=== PATIENT | female | born 2000 | race Two or more races ===

== ENCOUNTER 2022-10-22 23:16 | Emergency (ER) | payer OTHER ==
[~2022-10-22] VITALS: Ht 157.5 cm; Wt 97.8 kg
[2022-10-23 01:08] LABS: Basophils # (auto) 0.1 10 ^3/uL (0-0.2); Basophils % (auto) 1.4 % (0.0-2.0); Eosinophils # (auto) 0.2 10 ^3/uL (0-0.8); Eosinophils % (auto) 1.6 % (0.0-7.0); Hematocrit 44.3 % (36.0-46.0); Hemoglobin 14.7 g/dL (12.2-16.2); Lymphocytes # (auto) 1.6 10 ^3/uL (0.4-5.4); Mean Corpuscular Hemoglobin 30.2 pg (28.0-32.0); Mean Corpuscular Hgb Conc. 33.2 g/dL (32.0-36.0); Mean Corpuscular Volume 90.8 fL (80.0-100.0); Monocytes # (auto) 0.7 10 ^3/uL (0-1.3); Monocytes % (auto) 6.1 % (0.0-12.0); Neutrophils # (auto) 8.2 10 ^3/uL (1.6-8.6); Neutrophils % (auto) 75.9 % (37.0-80.0); Red Blood Cells 4.88 10^6/uL (4.0-5.20); Red Cell Distribution Width 12.9 % (11.8-14.3); White Blood Cell 10.8 10^3/uL (4.4-10.8)
[2022-10-23 01:21] LABS: Albumin 3.5 g/dL (3.4-5.0); Calcium 9.3 mg/dL (8.5-10.1); Potassium 3.6 mmol/L (3.5-5.1)
[2022-10-23 01:24] LABS: Bilirubin, Total 0.8 mg/dL (0.2-1.0); Total Protein 7.4 g/dL (6.4-8.2)
[2022-10-23] MEDS ORDERED: ONDA-144 PO (05:14)
[2022-10-23] MEDS ORDERED: CIPR-173 PO (05:14)
[2022-10-23] MEDS ORDERED: PERCOT PO (05:14)
[2022-10-23 05:18] VITALS: BP 96/65
== END 2022-10-23 05:19 | disposition home or self-care (01) ==
LOC: ER 23:16
DX: K80.20 Calculus of gallbladder without cholecystitis without obstruction (principal)
CPT/HCPCS: 36415; 71045; 74176; 80053; 83690; 85025

== ENCOUNTER → 2023-04-22 | Outpatient (CLI) | payer OTHER ==
[~2023-04-22] MED LIST: CIPR-173 PO; ONDA-144 PO; PERCOT PO
[2023-04-22 11:51] LABS: Beta HCG, Quantitative < 1 mlU/mL (1-3); Follicle Stimulating Hormone 10.28 IU/L (SEE BELOW)
== END | disposition home or self-care (01) ==
LOC: LAB 10:37
PROVIDERS: ATTEND Obstetrics & Gynecology
DX: R10.2 Pelvic and perineal pain (principal); N91.2 Amenorrhea, unspecified
CPT/HCPCS: 36415; 82670; 83001; 83002; 84403; 84443; 84702

== ENCOUNTER 2023-05-05 20:56 | Emergency (ER) | payer OTHER ==
[~2023-05-05] VITALS: Ht 154.9 cm; Wt 59.8 kg
[2023-05-05 22:26] LABS: Urine Bacteria MOD /hpf (None Seen); Urine Blood Negative /uL (Negative); Urine Mucus FEW (None Seen); Urine WBC 9 /hpf (0 - 5)
[2023-05-05 22:31] LABS: Basophils # (auto) 0 10 ^3/uL (0-0.2); Basophils % (auto) 0.7 % (0.0-2.0); Eosinophils # (auto) 0.1 10 ^3/uL (0-0.8); Eosinophils % (auto) 1.9 % (0.0-7.0); Hematocrit 39.6 % (36.0-46.0); Hemoglobin 13.7 g/dL (12.2-16.2); Lymphocytes # (auto) 2.5 10 ^3/uL (0.4-5.4); Lymphocytes % (auto) 36.9 % (10.0-50.0); Mean Corpuscular Hgb Conc. 34.7 g/dL (32.0-36.0); Mean Corpuscular Volume 89.5 fL (80.0-100.0); Monocytes # (auto) 0.4 10 ^3/uL (0-1.3); Monocytes % (auto) 6.1 % (0.0-12.0); Neutrophils # (auto) 3.7 10 ^3/uL (1.6-8.6); Neutrophils % (auto) 54.4 % (37.0-80.0); Nucleated Red Blood Cells % 0.2 %; Red Blood Cells 4.42 10^6/uL (4.0-5.20); Red Cell Distribution Width 12.6 % (11.8-14.3); White Blood Cell 6.9 10^3/uL (4.4-10.8)
[2023-05-05 22:42] LABS: Albumin 3.6 g/dL (3.4-5.0); Calcium 8.5 mg/dL (8.5-10.1)
[2023-05-05 22:44] LABS: BUN/Creatinine Ratio 24.1 (10.0-20.0)
[2023-05-05 22:47] LABS: Bilirubin, Total 0.5 mg/dL (0.2-1.0); Total Protein 7.6 g/dL (6.4-8.2)
[2023-05-06] MEDS ORDERED: HYDROmorphone HCL 2 MG/ML VL/or syr IV ONE (02:00)
[2023-05-06] MEDS ORDERED: cefTRIAXone 1GM/50ML D5W 50 ML IV ONE (02:00)
[2023-05-06] MEDS ORDERED: SODIUM CHLORIDE 0.9% 1,000 ML IV ONE (02:00)
[2023-05-06] MEDS ORDERED: PERCOT PO (03:43)
[2023-05-06] MEDS ORDERED: ZOFR4T PO (03:43)
[2023-05-06] MEDS ORDERED: NITR-87 PO (03:43)
[2023-05-06] MEDS: ONDANSETRON HCL 4 MG/2 ML VIAL IV ONE ×2 (03:48→04:00)
[2023-05-06] MEDS ORDERED: MORPHINE SULFATE 4 MG/ML SYR/VIAL IV ONE (04:00)
[2023-05-06 04:52] VITALS: BP 92/53
== END 2023-05-06 04:58 | disposition home or self-care (01) ==
LOC: ER 20:56
DX: N39.0 Urinary tract infection, site not specified (principal); N93.8 Other specified abnormal uterine and vaginal bleeding
CPT/HCPCS: 36415; 71045; 74176; 80053; 81001; 81025; 83690; 85025; 96365; 96375; 99285; J0696; J1170; J2270; J2405; J7030

== ENCOUNTER 2024-04-19 14:49 | Emergency (ER) | payer OTHER ==
[~2024-04-19] VITALS: Ht 154.9 cm; Wt 59.0 kg
[~2024-04-19 14:49] MED LIST changes: +NITR-87 PO; +ZOFR4T PO
[2024-04-19 14:50] VITALS: BP 97/69; PULSE 90; RESP 16; O2SAT 98
== END 2024-04-19 18:17 | disposition home or self-care (01) ==
LOC: ER 14:49
DX: O34.81 Maternal care for other abnormalities of pelvic organs, first trimester (principal); R10.2 Pelvic and perineal pain; N83.201 Unspecified ovarian cyst, right side; Z3A.01 Less than 8 weeks gestation of pregnancy
CPT/HCPCS: 36415; 76801; 76817; 84702

== ENCOUNTER 2025-02-02 19:45 | Observation (INO) | payer OTHER ==
[~2025-02-02] VITALS: Ht 154.9 cm; Wt 76.2 kg
[2025-02-02 20:50] LABS: Fern Testing Negative
--- NOTE | 2025-02-02 21:38 | DVH ---
ULTRASOUND BIOPHYSICAL PROFILE CLINICAL HISTORY: Decreased movement and pelvic pressure COMPARISON: 11/07/2024 TECHNIQUE: Real-time grayscale and color-flow imaging of the gravid uterus is performed. FINDINGS: Single living intrauterine gestation. heart rate 127 beats per minute. Vertex positioning. Ce rvix measures approximately 4.1 cm in length. Placenta is anterior. No definite evidence of abruptio n or previa at this time. Amniotic fluid index: 11.3 cm Biophysical profile: 8 out of 8. (2 breathing, 2 activity, 2 tone, 2 SANDER) IMPRESSION: Biophysical profile scoring 8 out of 8.
--- NOTE | 2025-02-03 12:45 | DVHDS2 ---
Physician Discharge Progress N Final Diagnosis: dec movement 36wks Operations or Procedures: Operations or Procedures nst,sono Condition on Discharge: Good Disposition: Home Discharge Instructions: Diet: Regular Activity: No Restrictions, As Tolerated Medications: na Follow Up Care: Specialist: 1d Discharge Statement: "Patient was advised to return to the ER or call 911 if any headaches, dizziness, shortness of breath, chest pain, abdominal pain, bleeding, fevers, or worsening of medical condition. Patient was counseled about treatment plan, medications, possible side effects, patientverbalized understanding. All questions were answered to the best of my ability. This discharge took greater then 30 minutes in planning, reviewing documentatio n, counseling the patient, and discussing with other team members." Visit Coding OBGYN Date of Service: Feb 03, 2025 Billing Provider: MICHAEL REN DO MOTOR RUNNER Common Visit Codes: [id number] INP/OBS CARE (HIGH) MOTOR RUNNER Procedure Codes: 27953-92- NON-STRESS TEST MICHAEL REN DO Feb 03, 2025 12:45
== END 2025-02-02 21:44 | disposition home or self-care (01) ==
LOC: LDRP 19:45
PROVIDERS: ADMIT Obstetrics & Gynecology; ATTEND Obstetrics & Gynecology
DX: O36.8130 Decreased fetal movements, third trimester, not applicable or unspecified (principal); O99.891 Other specified diseases and conditions complicating pregnancy; M54.50 Low back pain, unspecified; R10.2 Pelvic and perineal pain; Z98.890 Other specified postprocedural states; Z79.899 Other long term (current) drug therapy; Z3A.36 36 weeks gestation of pregnancy
CPT/HCPCS: 76818; 81002; 84112; 94760; G0378; Q0114; 76819

== ENCOUNTER 2025-03-10 04:17 | Inpatient (IN) | payer OTHER ==
[~2025-03-10] VITALS: Ht 154.9 cm; Wt 81.6 kg
[2025-03-10] MEDS ORDERED: LIDOCAINE 2%HCL (LOCAL ANESTH.) INJ 20ML MDV IJ PRN (06:00)
[2025-03-10] MEDS ORDERED: ONDANSETRON HCL 4 MG/2 ML VIAL IV PRN (06:00)
[2025-03-10] MEDS ORDERED: NALBUPHINE HCL 10 MG/1ml INJECTION IV PRN (06:00)
[2025-03-10 06:08] LABS: Fern Testing Negative
--- NOTE | 2025-03-10 06:09 | DVHHP ---
ADMIT DATE: 03/10/2025 CHIEF COMPLAINT: Labor. HISTORY OF PRESENT ILLNESS: The patient is a 24-year-old 5, para 1 with EDC 03/14, estimated gestational age of 39 weeks, admitted for labor. The patient reports having some regular contractions as well as bloody show. She is noted to be 3 cm, 50%, -3, mariajose regularly. PAST MEDICAL HISTORY: None. PAST SURGICAL HISTORY: None. SOCIAL HISTORY: None. FAMILY HISTORY: None. OBSTETRIC AND GYNECOLOGIC HISTORY: One vaginal delivery. GBS negative. Blood type O positive. REVIEW OF SYSTEMS: Consistent with HPI. PHYSICAL EXAMINATION: VITAL SIGNS: Stable. Afebrile. HEENT: Within normal limits. CARDIOVASCULAR: Regular rate and rhythm. LUNGS: Clear to auscultation. BREASTS: Symmetrical. No masses. ABDOMEN: Gravid. Positive heart, estimated weight 7+, per ultrasound finding. PELVIC: 3, 50%, -3. EXTREMITIES: No clubbing, cyanosis or edema. IMPRESSION: Intrauterine at 39 weeks in labor. PLAN: Admit. May need augmentation of labor. Informed consent obtained. Dr. Tubbs conservation science teacher will manage her in the next hour upon his time of conservation science teacher. DO ANIKA Petersen TID: [id number] RECEIPT: [id number]
[2025-03-10 06:39] LABS: Urine Bacteria None Seen /hpf (None Seen)
[2025-03-10 06:54] LABS: Basophils # (auto) 0 10 ^3/uL (0-0.2); Eosinophils # (auto) 0.2 10 ^3/uL (0-0.8); Hemoglobin 10.6 g/dL (12.2-16.2); Neutrophils # (auto) 6.5 10 ^3/uL (1.6-8.6); Red Blood Cells 4.05 10^6/uL (4.0-5.20); Red Cell Distribution Width 15.7 % (11.8-14.3)
[2025-03-10 06:58] LABS: Basophils % (auto) 0.3 % (0.0-2.0); Eosinophils % (auto) 1.8 % (0.0-7.0); Hematocrit 32.5 % (36.0-46.0); Lymphocytes # (auto) 2.3 10 ^3/uL (0.4-5.4); Lymphocytes % (auto) 23.6 % (10.0-50.0); Mean Corpuscular Hemoglobin 26.3 pg (28.0-32.0); Mean Corpuscular Hgb Conc. 32.8 g/dL (32.0-36.0); Mean Corpuscular Volume 80.1 fL (80.0-100.0); Monocytes # (auto) 0.8 10 ^3/uL (0-1.3); Monocytes % (auto) 8.3 % (0.0-12.0); Platelet Count (auto) 234 10^3/uL (140-450); White Blood Cell 9.8 10^3/uL (4.4-10.8)
[2025-03-10 07:01] LABS: Urine Blood 2+ /uL (Negative); Urine Clarity Clear (Clear); Urine Color Colorless (Yellow); Urine Protein, UAD Negative (Negative); Urine Specific Gravity 1.009 (1.001-1.035); Urine Squamous Epithelial Cell FEW /hpf (<5); Urine Urobilinogen Normal (Negative); Urine WBC 2 /HPF (0-5); Urine pH 6.5 (5.0-9.0)
[2025-03-10 07:07] LABS: Alanine Aminotransferase 11 U/L (7-40); Anion Gap 11 (5-15); BUN/Creatinine Ratio 13.5 (10.0-20.0); Calcium 9.2 mg/dL (8.7-10.4); Carbon Dioxide 21 mmol/L (20-31); Chloride 105 mmol/L (98-107); Potassium 3.6 mmol/L (3.5-5.1); Sodium 137 mmol/L (136-145)
[2025-03-10 07:08] LABS: Bilirubin, Total 0.3 mg/dL (0.2-1.0)
[2025-03-10 07:16] LABS: INR 1.02 (0.9-1.15); Partial Thromboplastin Time 26.2 SEC (24.5-34.5); Prothrombin Time 10.8 sec (9.3-11.8)
[2025-03-10 07:21] LABS: Amphetamine Screen, Urine Neg (NEGATIVE); Barbiturate Scree,Urine Neg (NEGATIVE); Benzodiazephine Screen, Urine Neg (NEGATIVE); Cannabinoid Screen, Urine Neg (NEGATIVE); Cocaine Screen, Urine Neg (NEGATIVE); Opiate Scree,Urine Neg (NEGATIVE); Phencyclidine Screen, Urine Neg (NEGATIVE)
[2025-03-10 07:21] LABS: Alkaline Phosphatase 143 U/L (46-116); Aspartate Aminotransferase < 8 U/L (13-40); Blood Urea Nitrogen 7 mg/dL (9-23); Glucose 109 mg/dL (74-106)
--- NOTE | 2025-03-10 08:16 | DVHPN2 ---
OB Labor Progress Note Date and Time Seen Date Seen: Mar 10, 2025 Time Seen: 08:13 Subjective Patient reports: Other (Stronger labor pains) Subjective Comment Reports SROM clear fluid Objective Vital Signs Afeb VS Monitoring Method Monitoring Method: External Heart Rate Heart Rate Baseline: 125 Heart Rate Variability: Moderate Presence of FHR Accelerations: No Presence of FHR Decelerations: No Contractions Contractions Frequency: Occasional Contractions Intensity: Moderate Membranes Membranes: Ruptured Amniotic Fluid Color: Clear Vaginal Exam Vag Exam Deferred: No Vaginal Exam Dilation: 4 Vaginal Exam Effacement: 75 Vaginal Exam Station: -2 Vaginal Exam Presentation: VTX Vaginal Exam Show: Small Medications Medications - Pitocin: No Medication - Epidural: No Lab Results Lab Results Current Medications Medications (Trade) Dose Ordered Sig/Iesha Start Time Stop Time Status Last Admin Dose Admin Lactated Ringer's 1,000 ml @ 125 mls/hr Q8H 03/10/25 06:00 Nalbuphine HCl (Nubain) 10 mg Q4HP PRN 03/10/25 06:00 Saba Daniels (Tucks) 1 pad PRN PRN 03/10/25 06:00 Sodium Lauryl Sulfate (Phisoderm) 240 ml PRN PRN 03/10/25 06:00 Benzocaine (Dermoplast) 1 applic PRN PRN 03/10/25 06:00 Lidocaine HCl (Xylocaine) 20 ml ONCE PRN 03/10/25 06:00 Ondansetron HCl (Zofran) 4 mg Q6HPRN PRN 03/10/25 06:00 Oxytocin 500 ml @ 999 mls/hr Q31M ONCE 03/10/25 12:00 03/10/25 12:30 Oxytocin 500 ml @ 125 mls/hr Q4H ONCE 03/10/25 12:30 03/10/25 16:29 Laboratory Tests Test 03/10/25 06:27 03/10/25 05:45 03/10/25 05:29 Range/Units White Blood Count 9.8 4.4-10.8 10^3/uL Red Blood Count 4.05 4.0-5.20 10^6/uL Hemoglobin 10.6 L 12.2-16.2 g/dL Hematocrit 32.5 L 36.0-46.0 % Mean Corpuscular Volume 80.1 80.0-100.0 fL Mean Corpuscular Hemoglobin 26.3 L 28.0-32.0 pg Mean Corpuscular Hemoglobin Concent 32.8 32.0-36.0 g/dL Red Cell Distribution Width 15.7 H 11.8-14.3 % Platelet Count 234 140-450 10^3/uL Mean Platelet Volume 9.5 6.9-10.8 fL Neutrophils (%) (Auto) 66.0 37.0-80.0 % Lymphocytes (%) (Auto) 23.6 10.0-50.0 % Monocytes (%) (Auto) 8.3 0.0-12.0 % Eosinophils (%) (Auto) 1.8 0.0-7.0 % Basophils (%) (Auto) 0.3 0.0-2.0 % Neutrophils # (Auto) 6.5 1.6-8.6 10 ^3/uL Lymphocytes # (Auto) 2.3 0.4-5.4 10 ^3/uL Monocytes # (Auto) 0.8 0-1.3 10 ^3/uL Eosinophils # (Auto) 0.2 0-0.8 10 ^3/uL Basophils # (Auto) 0 0-0.2 10 ^3/uL Nucleated Red Blood Cells 0.0 % Prothrombin Time 10.8 9.3-11.8 sec Prothrombin Time INR 1.02 0.9-1.15 Activated Partial Thromboplast Time 26.2 24.5-34.5 SEC Sodium Level 137 136-145 mmol/L Potassium Level 3.6 3.5-5.1 mmol/L Chloride Level 105 98-107 mmol/L Carbon Dioxide Level 21 20-31 mmol/L Anion Gap 11 5-15 Blood Urea Nitrogen 7 L 9-23 mg/dL Creatinine 0.52 L 0.550-1.02 mg/dL Glomerular Filtration Rate Calc 133 >90 mL/min BUN/Creatinine Ratio 13.5 10.0-20.0 Serum Glucose 109 H 74-106 mg/dL Calcium Level 9.2 8.7-10.4 mg/dL Total Bilirubin 0.3 0.2-1.0 mg/dL Aspartate Amino Transferase (AST) < 8 L 13-40 U/L Alanine Aminotransferase (ALT) 11 7-40 U/L Alkaline Phosphatase 143 H 46-116 U/L Total Protein 7.0 5.7-8.2 g/dL Albumin 4.0 3.2-4.8 g/dL Treponema pallidum Antibody Non-reactive Negative Hepatitis B Surface Antigen Pending Hepatitis C Antibody Pending HIV (1&2) Antibody Negative Negative Rubella IgG Antibody Pending Urine Color Colorless Yellow Urine Clarity Clear Clear Urine pH 6.5 5.0-9.0 Urine Specific Jbphh 1.009 1.001-1.035 Urine Protein Negative Negative Urine Ketones Negative Negative Urine Blood 2+ H Negative /uL Urine Nitrite Negative Negative Urine Bilirubin Negative Negative Urine Urobilinogen Normal Negative mg/dL Urine Leukocyte Esterase Negative Negative /uL Urine RBC 1 0 - 4 /hpf Urine Microscopic WBC 2 0-5 /HPF Urine Squamous Epithelial Cells Few <5 /hpf Urine Bacteria None seen None Seen /hpf Urine Glucose Normal Normal mg/dL Urine Opiates Screen Neg NEGATIVE Urine Fentanyl Screen Neg NEGATIVE Urine Barbiturates Screen Neg NEGATIVE Urine Phencyclidine Screen Neg NEGATIVE Urine Amphetamines Screen Neg NEGATIVE Urine Benzodiazepines Screen Neg NEGATIVE Urine Cocaine Screen Neg NEGATIVE Urine Cannabinoids Screen Neg NEGATIVE Amniotic Fluid Ferning Test Negative Placental Attar-[id number] Positive Assessment Assessment Term in spont labor GBS neg Plan Plan Continue labor mgmt Pitocin augmentation as needed Anticipated Epidural declined Plan discussed with: Patient, Other (L&D RN) Visit Coding OBGYN Date of Service: Mar 10, 2025 Billing Provider: ANGELINA GUTIERREZ DO REEL AND REWINDER OPERATOR Common Visit Codes: [id number] INP/OBS CARE(MOD) ANGELINA GUTIERREZ DO Mar 10, 2025 08:16
--- NOTE | 2025-03-10 09:44 | DVH ---
LIMITED OB ULTRASOUND > 14 WKS: HISTORY: Presentation TECHNIQUE: Multiple real-time grayscale images of the gravid uterus for presentation TRANSDUCER: Transabdominal FINDINGS/IMPRESSION: Cephalic Presentation
[2025-03-10] MEDS: DERMOPLAST 60ML BOTTLE TOP PRN (10:45)
[2025-03-10] MEDS: PHISODERM TOP SOLN 240ML BTL TOP PRN (10:45)
[2025-03-10] MEDS: WITCH HAZEL-GLYCERIN PAD TOP PRN (10:45)
[2025-03-10] MEDS: LACT. RINGERS/OXYTOCIN 20UNITS 1,000 ML IV SCH (13:53)
[2025-03-10] MEDS: LACTATED RINGER'S 1,000 ML IV SCH (15:14)
[2025-03-10] MEDS ORDERED: ePHEDrine SULFATE 50 MG/ML AMP IV ONE (16:45)
[2025-03-10] MEDS: ROPIVACAINE HCL 200 ML ONE (17:16)
--- NOTE | 2025-03-10 18:05 | LDN2 ---
Labor and Delivery Note Date 03/10/25 Age 24 5 Para 2 AB 3 EDC 03/14/25 EGA 39.3 wk Diagnosis Term , spont labor GBS neg Vaginal Delivery: VTX Vacuum Assisted: No Placenta: Spontaneous Sex: Female Apgars 8/9 Nuchal Cord Transected: No (loose nuchal cord x 1) Amniotic Fluid: Meconium Stained Anesthesia Epidural Episiotomy: No Repaired with N/A Labs Laboratory Tests 03/10/25 06:27: Hepatitis B Surface Antigen Negative, HIV (1&2) Antibody Negative Blood Bank 03/10/25 06:27: Blood Type O POSITIVE Complications None Comments/Significant Med Keke uncomplicated No lacerations Patient has a vaginal tissue adhesion from prior vaginal , discussed fin corky mcleod/ patient Visit Coding OBGYN Date of Service: Mar 10, 2025 Billing Provider: ANGELINA GUTIERREZ DO AUTOMOBILE DRIVERS Common Visit Codes: PROCEDURE ONLY AUTOMOBILE DRIVERS Procedure Codes: [id number] OB CARE,VAG DELIVERY ANGELINA GUTIERREZ DO Mar 10, 2025 18:05
[2025-03-10] MEDS: LACT. RINGERS/OXYTOCIN 20UNITS 500 ML IV ONE ×4 (18:46→18:55)
[2025-03-10] MEDS: IBUPROFEN 600 MG TAB PO PRN (19:49)
[2025-03-10] MEDS: ACETAMINOPHEN 325 MG TAB PO PRN (21:37)
[2025-03-10] MEDS: DOCUSATE SOD 100 MG CAP PO SCH (21:38)
[2025-03-10 23:04] VITALS: BP 103/60; PULSE 93; RESP 18; TEMP 98.4; O2SAT 96
[2025-03-11] MEDS: NALOXONE HCL 0.4 MG/ML VIAL IV ONE (00:32)
[2025-03-11] MEDS: diphenhdrAMINE HCL 50 MG/1 ML VL IV ONE (00:33)
[2025-03-11 02:42] VITALS: BP 110/64; PULSE 84; RESP 16; TEMP 98; O2SAT 95
[2025-03-11 07:00] VITALS: BP 99/57; PULSE 86; RESP 16; TEMP 99.8; O2SAT 98
[2025-03-11 10:07] LABS: Rubella Antibodies, IgG <0.90 index (Immune >0.99)
--- NOTE | 2025-03-11 10:09 | DVHDS2 ---
Discharge Summary Date of Admission Mar 10, 2025 at 05:47 Date of Discharge: Mar 11, 2025 Admitting Diagnosis Term , spont labor Labs/Diagnostic Data: Laboratory Results Test 03/10/25 06:27 03/10/25 05:45 03/10/25 05:29 White Blood Count 9.8 10^3/uL (4.4-10.8) Red Blood Count 4.05 10^6/uL (4.0-5.20) Hemoglobin 10.6 g/dL (12.2-16.2) Hematocrit 32.5 % (36.0-46.0) Mean Corpuscular Volume 80.1 fL (80.0-100.0) Mean Corpuscular Hemoglobin 26.3 pg (28.0-32.0) Mean Corpuscular Hemoglobin Concent 32.8 g/dL (32.0-36.0) Red Cell Distribution Width 15.7 % (11.8-14.3) Platelet Count 234 10^3/uL (140-450) Mean Platelet Volume 9.5 fL (6.9-10.8) Neutrophils (%) (Auto) 66.0 % (37.0-80.0) Lymphocytes (%) (Auto) 23.6 % (10.0-50.0) Monocytes (%) (Auto) 8.3 % (0.0-12.0) Eosinophils (%) (Auto) 1.8 % (0.0-7.0) Basophils (%) (Auto) 0.3 % (0.0-2.0) Neutrophils # (Auto) 6.5 10 ^3/uL (1.6-8.6) Lymphocytes # (Auto) 2.3 10 ^3/uL (0.4-5.4) Monocytes # (Auto) 0.8 10 ^3/uL (0-1.3) Eosinophils # (Auto) 0.2 10 ^3/uL (0-0.8) Basophils # (Auto) 0 10 ^3/uL (0-0.2) Nucleated Red Blood Cells 0.0 % Prothrombin Time 10.8 sec (9.3-11.8) Prothrombin Time INR 1.02 (0.9-1.15) Activated Partial Thromboplast Time 26.2 SEC (24.5-34.5) Sodium Level 137 mmol/L (136-145) Potassium Level 3.6 mmol/L (3.5-5.1) Chloride Level 105 mmol/L (98-107) Carbon Dioxide Level 21 mmol/L (20-31) Anion Gap 11 (5-15) Blood Urea Nitrogen 7 mg/dL (9-23) Creatinine 0.52 mg/dL (0.550-1.02) Glomerular Filtration Rate Calc 133 mL/min (>90) BUN/Creatinine Ratio 13.5 (10.0-20.0) Serum Glucose 109 mg/dL (74-106) Calcium Level 9.2 mg/dL (8.7-10.4) Total Bilirubin 0.3 mg/dL (0.2-1.0) Aspartate Amino Transferase (AST) < 8 U/L (13-40) Alanine Aminotransferase (ALT) 11 U/L (7-40) Alkaline Phosphatase 143 U/L (46-116) Total Protein 7.0 g/dL (5.7-8.2) Albumin 4.0 g/dL (3.2-4.8) Treponema pallidum Antibody Non-reactive (Negative) Hepatitis B Surface Antigen Negative (Negative) Hepatitis C Antibody Negative (Negative) HIV (1&2) Antibody Negative (Negative) Urine Color Colorless (Yellow) Urine Clarity Clear (Clear) Urine pH 6.5 (5.0-9.0) Urine Specific [place] 1.009 (1.001-1.035) Urine Protein Negative (Negative) Urine Ketones Negative (Negative) Urine Blood 2+ /uL (Negative) Urine Nitrite Negative (Negative) Urine Bilirubin Negative (Negative) Urine Urobilinogen Normal mg/dL (Negative) Urine Leukocyte Esterase Negative /uL (Negative) Urine RBC 1 /hpf (0 - 4) Urine Microscopic WBC 2 /HPF (0-5) Urine Squamous Epithelial Cells Few /hpf (<5) Urine Bacteria None seen /hpf (None Seen) Urine Glucose Normal mg/dL (Normal) Urine Opiates Screen Neg (NEGATIVE) Urine Fentanyl Screen Neg (NEGATIVE) Urine Barbiturates Screen Neg (NEGATIVE) Urine Phencyclidine Screen Neg (NEGATIVE) Urine Amphetamines Screen Neg (NEGATIVE) Urine Benzodiazepines Screen Neg (NEGATIVE) Urine Cocaine Screen Neg (NEGATIVE) Urine Cannabinoids Screen Neg (NEGATIVE) Amniotic Fluid Ferning Test Negative Placental [id number] Positive Other Laboratory Tests 03/10/25 06:27 Brief Hx & Hospital Course: Uncomplicated labor and normal vaginal delivery + epidural normal course Operations or Procedures Condition at Discharge: Stable Final Diagnosis/Problems List Term , delivered Discharge Disposition: Home Discharge Instruct/Medications Diet: Regular Activity: Light activity Activity comment: Pelvic rest x 6 weeks Follow Up/Referral: [address] Denise Medications: Ibuprofen PRN 30 Discharge Statement: "Patient was advised to return to the ER or call 911 if any headaches, dizziness, shortness of breath, chest pain, abdominal pain, bleeding, fevers, or worsening of medical condition. Patient was counseled about treatment plan, medications, possible side effects, patientverbalized understanding. All questions were answered to the best of my ability. This discharge took greater then 30 minutes in planning, reviewing documentation, counseling the patient, and discussing with other team members." ASSESSMENT ASSESSMENT Assessment Visit Coding OBGYN Date of Service: Mar 11, 2025 Billing Provider: ANGELINA GUTIERREZ DO COMPARATOR OPERATOR Common Visit Codes: [id number]/OBS DISCH DAY <30MIN ANGELINA GUTIERREZ DO Mar 11, 2025 10:09
[2025-03-11] MEDS ORDERED: IBU600T PO (10:10)
[2025-03-11 11:00] VITALS: BP 100/63; PULSE 95; RESP 18; TEMP 97.8; O2SAT 98
[2025-03-11 11:15] LABS: Basophils # (auto) 0 10 ^3/uL (0-0.2); Basophils % (auto) 0.3 % (0.0-2.0); Eosinophils # (auto) 0.1 10 ^3/uL (0-0.8); Eosinophils % (auto) 0.6 % (0.0-7.0); Hematocrit 31.5 % (36.0-46.0); Hemoglobin 10.1 g/dL (12.2-16.2); Lymphocytes # (auto) 1.7 10 ^3/uL (0.4-5.4); Lymphocytes % (auto) 14.7 % (10.0-50.0); Mean Corpuscular Hemoglobin 25.6 pg (28.0-32.0); Mean Corpuscular Hgb Conc. 32.2 g/dL (32.0-36.0); Mean Corpuscular Volume 79.7 fL (80.0-100.0); Monocytes # (auto) 0.8 10 ^3/uL (0-1.3); Monocytes % (auto) 7.3 % (0.0-12.0); Neutrophils # (auto) 8.7 10 ^3/uL (1.6-8.6); Neutrophils % (auto) 77.1 % (37.0-80.0); Platelet Count (auto) 213 10^3/uL (140-450); Red Blood Cells 3.95 10^6/uL (4.0-5.20); Red Cell Distribution Width 15.6 % (11.8-14.3); White Blood Cell 11.3 10^3/uL (4.4-10.8)
[2025-03-11 15:00] VITALS: BP 102/59; PULSE 92; RESP 16; TEMP 98.7; O2SAT 97
[2025-03-11 19:00] VITALS: BP 99/65; PULSE 90; RESP 18; TEMP 98.5; O2SAT 98
== END 2025-03-11 21:10 | disposition home or self-care (01) | DRG 807 ==
LOC: LDRP 04:17 → UNDOADMOB 04:17 → LDRP 05:47 → INTOOBSV 05:47 → OBSVTOIN 05:47 → LDRP 20:08
PROVIDERS: ADMIT Obstetrics & Gynecology; ATTEND Obstetrics & Gynecology
PROC: 10E0XZZ Delivery of Products of Conception, External Approach (ICD-10-PCS; principal; 2025-03-10)
PROC: 3E0R3BZ Introduction of Anesthetic Agent into Spinal Canal, Percutaneous Approach (ICD-10-PCS; 2025-03-10)
PROC: 00HU33Z Insertion of Infusion Device into Spinal Canal, Percutaneous Approach (ICD-10-PCS; 2025-03-10)
DX: O77.0 Labor and delivery complicated by meconium in amniotic fluid (principal); O69.81X0 Labor and delivery complicated by cord around neck, without compression, not applicable or unspecified; Z37.0 Single live birth; Z3A.39 39 weeks gestation of pregnancy
CPT/HCPCS: 36415; 59409; 62282; 76815; 80053; 80307; 81001; 81002; 84112; 85025; 85610; 85730; 86703; 86762; 86780; 86803; 86850; 86900; 86901; 87340; 94760; 96360; 96361; 96365; 96366; G0378; J2590